=== PATIENT | female | born 1975 | race Caucasian/White ===

== ENCOUNTER 2019-04-27 14:29 | Emergency (ER) | payer BC ==
[~2019-04-27] VITALS: Ht 165.1 cm; Wt 63.5 kg
[~2019-04-27 14:29] MED LIST: 'PARAFON FORTE500 M1 PO; HYDROCODONE BIT1 T11 PO; NAPROSYN500 MG PO
[2019-04-27 14:40] VITALS: BP 105/79
[2019-04-27] MEDS ORDERED: ANAPROX DS550 MG PO (17:07)
== END 2019-04-27 17:16 | disposition home or self-care (01) ==
LOC: ED 14:29
DX: M25.512 Pain in left shoulder (principal); X50.9XXA Other and unspecified overexertion or strenuous movements or postures, initial encounter; Y93.89 Activity, other specified; Y92.89 Other specified places as the place of occurrence of the external cause; Y99.8 Other external cause status

== ENCOUNTER 2020-10-16 13:24 | Emergency (ER) | payer SELFPAY ==
[~2020-10-16] VITALS: Ht 167.6 cm; Wt 77.1 kg
[~2020-10-16 13:24] MED LIST changes: +ANAPROX DS550 MG PO
[2020-10-16 13:36] VITALS: BP 133/71
[2020-10-16] MEDS ORDERED: PREDNISONE20 M1 PO ×2 (14:14)
== END 2020-10-16 14:29 | disposition home or self-care (01) ==
LOC: ED 13:24
DX: L25.9 Unspecified contact dermatitis, unspecified cause (principal); Z79.899 Other long term (current) drug therapy

== ENCOUNTER 2024-10-03 21:06 | Emergency (ER) | payer OTHER ==
[~2024-10-03] VITALS: Ht 165.1 cm; Wt 59.0 kg
[~2024-10-03 21:06] MED LIST changes: +PREDNISONE20 M1 PO
[2024-10-03] MEDS ORDERED: ASPIRIN, CHEWABLE 81 MG TAB PO ONE (21:25)
[2024-10-03] MEDS ORDERED: SODIUM CHLORIDE 0.9% 1,000 ML IV ONE (21:25)
[2024-10-03] MEDS ORDERED: TICAGRELOR 90 MG TABLET PO ONE (21:25)
[2024-10-03 21:36] VITALS: BP 124/84
[2024-10-03 21:45] LABS: HEMATOCRIT 49.4 % (37.0-47.0); MEAN CELL VOLUME 93.4 fl (81.0-99.0); MEAN CORPUSCULAR HGB 31.2 pg (27.0-31.0); MEAN CORPUSCULAR HGB CONC 33.4 g/dl (33.0-37.0); MEAN PLATELET VOLUME 11.2 fl (9.6-12.3); PLATELET COUNT AUTOMATED 296 10*3/uL (130-400); RED BLOOD COUNT 5.29 10*6/uL (4.10-5.10); RED CELL DISTRI WIDTH 14.8 % (0-14.5); WHITE BLOOD COUNT 18.1 10*3/uL (4.8-10.8)
[2024-10-03 21:46] LABS: MANUAL DIFF REFLEX YES
[2024-10-03 22:01] LABS: CHLORIDE 103 mmol/L (98-107); POTASSIUM 4.6 mmol/L (3.4-5.1)
[2024-10-03 22:02] LABS: BUN < 5 mg/dl (9-23)
[2024-10-03 22:08] LABS: PLATELET SUFFICIENCY NORMAL (NORMAL); TOTAL CELLS COUNTED 100 #CELLS
[2024-10-03 22:09] LABS: OVALOCYTES FEW
== END 2024-10-03 22:05 | disposition short-term general hospital (02) ==
LOC: ED 21:06
PROVIDERS: Internal Medicine
DX: I21.3 ST elevation (STEMI) myocardial infarction of unspecified site (principal); Z79.899 Other long term (current) drug therapy; Z98.51 Tubal ligation status

== ENCOUNTER 2025-02-02 12:29 | Emergency (ER) | payer OTHER ==
[~2025-02-02] VITALS: Ht 165.1 cm; Wt 72.6 kg
[2025-02-02] MEDS ORDERED: HEPARIN SODIUM 5,000 UNIT/ML VIAL IV ONE (13:00)
[2025-02-02] MEDS ORDERED: ASPIRIN, CHEWABLE 81 MG TAB PO ONE (13:00)
[2025-02-02] MEDS ORDERED: TICAGRELOR 90 MG TABLET PO ONE (13:00)
[2025-02-02 13:15] LABS: BASO # 0.1 10*3/uL (0.0-0.1); BASO % 0.4 % (0.0-1.0); EOS # 0.1 10*3/uL (0.0-0.4); EOS % 0.8 % (1.0-4.0); MEAN CELL VOLUME 93.8 fl (81.0-99.0); MEAN CORPUSCULAR HGB 30.6 pg (27.0-31.0); MEAN PLATELET VOLUME 11.1 fl (9.6-12.3); MONO # 0.7 10*3/uL (0.1-1.0); MONO % 5.8 % (3.0-9.0); NEUT # 9.0 10*3/uL (2.3-7.9); NEUT % 75.9 % (47.0-73.0); NUCLEATED RED BLOOD CELL 0.0 % (0.0-0.0); NUCLEATED RED BLOOD CELL 0.0 10*3/uL (0.0-0.0); PLATELET COUNT AUTOMATED 293 10*3/uL (130-400); RED CELL DISTRI WIDTH 14.0 % (0-14.5)
[2025-02-02] MEDS ORDERED: ASPIRIN CHEWABL81 MG PO (13:22)
[2025-02-02] MEDS ORDERED: BRILINTA90 M1 PO (13:22)
[2025-02-02 13:30] VITALS: BP 129/87
[2025-02-02 14:11] LABS: BUN 9 mg/dl (9-23)
== END 2025-02-02 13:53 | disposition short-term general hospital (02) ==
LOC: ED 12:29
PROVIDERS: Student in an Organized Health Care Education/Training Program
DX: I21.9 Acute myocardial infarction, unspecified (principal); I25.10 Atherosclerotic heart disease of native coronary artery without angina pectoris